=== PATIENT | female | born 1990 | race Caucasian/White ===

== ENCOUNTER 2016-08-15 10:00 | Observation (INO) | payer MEDICAID, OTHER ==
[~2016-08-15] VITALS: Ht 175.3 cm; Wt 91.2 kg
[~2016-08-15 10:00] MED LIST: IBUP-777 PO
[2016-08-15] MEDS ORDERED: PREN-88 PO (10:53)
[2016-08-15 11:37] LABS: CLARITY URINE CLEAR (CLEAR); COLOR URINE DARK YELLOW (YELLOW); GLUCOSE URINE NEGATIVE (NEGATIVE); KETONES URINE NEGATIVE (NEGATIVE); LEUKOCYTE ESTERASE URINE NEGATIVE (NEGATIVE); NITRITE URINE NEGATIVE (NEGATIVE); OCCULT BLOOD URINE NEGATIVE (NEGATIVE); PH URINE 8.5 (4.5-8.0); PROTEIN URINE NEGATIVE (NEGATIVE); SPECIFIC GRAVITY URINE 1.024 (1.005-1.030); UROBILINOGEN URINE 0.2 E.U./dL (0.2-1.0)
== END 2016-08-15 12:15 | disposition home or self-care (01) ==
LOC: L&D 10:00
PROVIDERS: ADMIT Specialist; ATTEND Specialist
DX: O26.892 Other specified pregnancy related conditions, second trimester (principal); R10.2 Pelvic and perineal pain; R26.2 Difficulty in walking, not elsewhere classified; Z3A.21 21 weeks gestation of pregnancy
CPT/HCPCS: 81003; 99281; G0378

== ENCOUNTER 2020-01-02 13:41 | Emergency (ER) | payer MEDICAID ==
[~2020-01-02] VITALS: Ht 175.3 cm; Wt 159.0 kg
[~2020-01-02 13:41] MED LIST changes: +PREN-88 PO
[2020-01-02 13:46] VITALS: BP 135/81
[2020-01-02] MEDS ORDERED: KETOROLAC 60MG/2ML VIAL IM ONE (14:15)
== END 2020-01-02 15:40 | disposition home or self-care (01) ==
LOC: ER 13:41
DX: M54.5 Low back pain (principal); Z88.1 Allergy status to other antibiotic agents; Z98.890 Other specified postprocedural states
CPT/HCPCS: 81025; 96372; 99283; J1885

== ENCOUNTER 2022-01-08 20:41 | Emergency (ER) | payer MEDICAID ==
[~2022-01-08] VITALS: Ht 172.7 cm; Wt 79.2 kg
[2022-01-08 22:02] VITALS: BP 111/73
[2022-01-09] MEDS ORDERED: ACETAMINOPHEN 325MG TABLET PO STA (01:06)
[2022-01-09 01:29] LABS: BASOPHILS % 0.5 % (0.0-2.0); EOSINOPHILS % 2.2 % (0.0-5.0); HEMATOCRIT. 36.1 % (36.0-48.0); LYMPHOCYTES % 41.7 % (20.0-50.0); MEAN CORPUSCULAR HEMOGLOBIN 27.4 pg (28.0-32.0); MEAN CORPUSCULAR VOLUME 82.8 fL (81.0-99.0); MEAN PLATELET VOLUME 9.8 fl (7.4-10.4); MONOCYTES % 7.8 % (2.0-8.0); NEUTROPHILS % 47.8 % (40.0-76.0); PLATELET 211 x1000/uL (130-400); RED BLOOD CELL COUNT 4.37 mill/uL (4.2-5.4); RED CELL DISTRIBUTION WIDTH 14.6 % (11.6-14.6)
[2022-01-09 01:30] LABS: CHLORIDE 106 mEq/L (98-107)
[2022-01-09 02:05] LABS: CLARITY URINE CLOUDY (CLEAR); COLOR URINE DARK YELLOW (YELLOW); KETONES URINE TRACE (NEGATIVE); LEUKOCYTE ESTERASE URINE 2+ (NEGATIVE); NITRITE URINE NEGATIVE (NEGATIVE); OCCULT BLOOD URINE NEGATIVE (NEGATIVE); PH URINE 5.5 (4.5-8.0); PROTEIN URINE 1+ (NEGATIVE); SPECIFIC GRAVITY URINE 1.032 (1.005-1.030)
[2022-01-09] MEDS ORDERED: CEPHALEXIN 250MG CAPSULE PO ONE (03:15)
[2022-01-09] MEDS ORDERED: CEPH500C2 MT (03:17)
[2022-01-09] MEDS ORDERED: ACET325C7 PO (03:17)
[2022-01-09] MEDS ORDERED: PREN-135 MT (03:17)
== END 2022-01-09 03:54 | disposition home or self-care (01) ==
LOC: ER 20:41
DX: O20.0 Threatened abortion (principal); O23.41 Unspecified infection of urinary tract in pregnancy, first trimester; N39.0 Urinary tract infection, site not specified; Z90.49 Acquired absence of other specified parts of digestive tract; Z98.84 Bariatric surgery status; Z88.1 Allergy status to other antibiotic agents; Z3A.01 Less than 8 weeks gestation of pregnancy
CPT/HCPCS: 36415; 76801; 80053; 81003; 85025; 86900; 87077; 87186; 93005; 99285